=== PATIENT | female | born 1985 | race Asian ===

== ENCOUNTER 2017-02-26 10:39 | Inpatient (IN) | payer SELFPAY ==
[~2017-02-26] VITALS: Ht 157.5 cm; Wt 62.6 kg
[2017-02-27] MEDS ORDERED: OXYTOCIN 10 UNITS/ML VIAL IM SCH (00:30)
[2017-02-27] MEDS ORDERED: METHYLERGONOVINE 0.2 MG/ML AMP IM PRN ×2 (00:30→18:00)
[2017-02-27] MEDS ORDERED: PROMETHAZINE 25 MG/ML VIAL IVP PRN (00:30)
[2017-02-27] MEDS ORDERED: CARBOPROST 250 MCG/ML AMP IM PRN (00:30)
[2017-02-27] MEDS ORDERED: NALBUPHINE HYDROCHLORIDE 10 MG/ML VIAL IVP PRN (00:30)
[2017-02-27 00:40] VITALS: BP 108/58
[2017-02-27] MEDS ORDERED: OXYTOCIN 20 UNITS/LR PREMIX 1,000 ML IV SCH (01:00)
[2017-02-27 01:02] LABS: HEMOGLOBIN 10.9 g/dL (12.0-16.0)
[2017-02-27 01:10] LABS: APPEARANCE,URINE CLEAR (CLEAR); BILIRUBIN,URINE NEGATIVE (NEGATIVE); BLOOD, URINE NEGATIVE (NEGATIVE); COLOR,URINE YELLOW (YELLOW); LEUKOCYTE ESTERASE ,URINE NEGATIVE (NEGATIVE); NITRITE, URINE NEGATIVE (NEGATIVE); PROTEIN,URINE NEGATIVE (NEGATIVE); UGLUCOSE NEGATIVE (NEGATIVE); UROBILINOGEN,URINE 0.2 EU/dL (0.2 - 1)
[2017-02-27 01:16] LABS: BASOPHILS # (AUTO) 0.1 K/uL (0.00-0.22); BASOPHILS % (AUTO) 1.7 % (0.0-2.0); EOSINOPHILS # (AUTO) 0.1 K/uL (0-0.4); EOSINOPHILS % (AUTO) 0.8 % (0.0-4.0); HEMATOCRIT 33.4 % (36-48); LYMPHOCYTES # (AUTO) 1.3 K/uL (2.5-16.5); LYMPHOCYTES % (AUTO) 19.1 % (20.5-51.1); MEAN CORPUSCULAR HEMOGLOBIN 28 pg (27-31); MEAN CORPUSCULAR HGB CONC 33 g/dL (33-37); MEAN CORPUSCULAR VOLUME 87 fL (80-94); MONOCYTES # (AUTO) 0.3 K/uL (0.8-1.0); MONOCYTES % (AUTO) 4.9 % (1.7-9.3); NEUTROPHILS # (AUTO) 5.2 K/uL (1.8-7.7); NEUTROPHILS % (AUTO) 73.5 % (42.2-75.2); PLATELET COUNT (AUTO) 142 K/uL (140-450); RED BLOOD CELL COUNT(AUTO) 3.83 MIL/uL (4.20-5.40); RED CELL DISTRIBUTION WIDTH 14.3 % (11.6-13.7)
[2017-02-27] MEDS: LACTATED RINGERS 1,000 ML IV SCH ×2 (01:19→05:50)
[2017-02-27] MEDS ORDERED: MISOPROSTOL 25 MCG TAB ONE (01:49)
[2017-02-27] MEDS: MISOPROSTOL 25 MCG TAB VG PRN ×2 (02:02→02:03)
[2017-02-27] MEDS ORDERED: PHO667 PO (02:27)
[2017-02-27] MEDS ORDERED: IRON65TA11 PO (02:27)
[2017-02-27 03:43] LABS: BACTERIA,URINE FEW /HPF (None Seen); RBC,URINE 0-5 (RARE) /HPF (0-5); WBC,URINE 0-5 (RARE) /HPF (0-5)
[2017-02-27] MEDS ORDERED: OXYTOCIN 20 UNITS/LR PREMIX 1,000 ML IV ONE (06:06)
[2017-02-27] MEDS ORDERED: ROPIVACAINE 0.2%/NS PREMIX 250 ML EPI ONE (07:46)
--- NOTE | 2017-02-27 10:02 | NUR ---
PATIENT HAS BEEN SCREENED AND CATEGORIZED LOW NUTRITION RISK. PATIENT WILL BE SEEN WITHIN 7 DAYS OF ADMISSION. 03/05/[address]
[2017-02-27] MEDS ORDERED: OXYTOCIN 10 UNITS/ML VIAL ONE (15:39)
[2017-02-27] MEDS ORDERED: HYDROcodone/APAP 5/325 MG 1 TAB TAB PO PRN (18:00)
[2017-02-27] MEDS ORDERED: BENZOCAINE/MENTHOL 20%-0.5% 60 GM CAN TP PRN (18:00)
[2017-02-27] MEDS ORDERED: WITCH HAZEL 40 PAD PACKAGE TP PRN (18:00)
[2017-02-27] MEDS ORDERED: IBUPROFEN 800 MG TAB PO PRN (18:00)
[2017-02-27] MEDS ORDERED: oxyCODONE/APAP 5/325 MG 1 TAB TAB PO PRN (18:00)
[2017-02-27] MEDS ORDERED: MEASLES, MUMPS, AND RUBELLA 1 VIAL SQVAC PRN (18:00)
[2017-02-27] MEDS ORDERED: TEMAZEPAM 15 MG CAP PO PRN (18:00)
[2017-02-27] MEDS ORDERED: DOCUSATE SOD/SENNA 50/8.6 MG 1 TAB PO SCH (21:00)
[2017-02-28 06:02] LABS: HEMATOCRIT 30.9 % (36-48); HEMOGLOBIN 10.3 g/dL (12.0-16.0)
== END 2017-03-01 13:50 | disposition home or self-care (01) | DRG 775 ==
LOC: MLD 02-27 00:20 → MFCC 02-27 20:45
PROVIDERS: ADMIT Obstetrics & Gynecology; ATTEND Obstetrics & Gynecology
PROC: 10E0XZZ Delivery of Products of Conception, External Approach (ICD-10-PCS; principal; 2017-02-27)
PROC: 10907ZC Drainage of Amniotic Fluid, Therapeutic from Products of Conception, Via Natural or Artificial Opening (ICD-10-PCS; 2017-02-27)
PROC: 3E0P7GC Introduction of Other Therapeutic Substance into Female Reproductive, Via Natural or Artificial Opening (ICD-10-PCS; 2017-02-27)
PROC: 0HQ9XZZ Repair Perineum Skin, External Approach (ICD-10-PCS; 2017-02-27)
PROC: 00HU33Z Insertion of Infusion Device into Spinal Canal, Percutaneous Approach (ICD-10-PCS; 2017-02-27)
PROC: 3E0R3CZ (ICD-10-PCS; 2017-02-27)
PROC: 3E0234Z Introduction of Serum, Toxoid and Vaccine into Muscle, Percutaneous Approach (ICD-10-PCS; 2017-02-28)
DX: O99.284 Endocrine, nutritional and metabolic diseases complicating childbirth (principal); E05.90 Thyrotoxicosis, unspecified without thyrotoxic crisis or storm; O70.0 First degree perineal laceration during delivery; Z37.0 Single live birth; Z3A.40 40 weeks gestation of pregnancy; Z23 Encounter for immunization
CPT/HCPCS: 36415; 51702; 59200; 59409; 81001; 85018; 85025; 86592; 86886; 86900; 86901; 90715; J2590; J2795; J7120